=== PATIENT | male | born 1935 | race Caucasian/White ===

== ENCOUNTER 2020-08-14 12:37 | Outpatient (CLI) | payer OTHER, MEDICARE | END 2020-08-14 19:25 | disposition home or self-care (01) | LOC: SUS 12:37 | PROVIDERS: ATTEND Internal Medicine | DX: N28.1 Cyst of kidney, acquired (principal) | CPT/HCPCS: 76770 ==

== ENCOUNTER 2020-09-09 14:59 | Emergency (ER) | payer OTHER, MEDICARE ==
[~2020-09-09] VITALS: Ht 175.3 cm; Wt 103.0 kg
[2020-09-09 15:20] VITALS: BP_SYST 170
[2020-09-09 16:00] VITALS: BP_SYST 170
== END 2020-09-09 16:00 | disposition home or self-care (01) ==
LOC: SED 14:59
DX: S80.212A Abrasion, left knee, initial encounter (principal); W57.XXXA Bitten or stung by nonvenomous insect and other nonvenomous arthropods, initial encounter; Y93.89 Activity, other specified; Y92.89 Other specified places as the place of occurrence of the external cause; Y99.8 Other external cause status
CPT/HCPCS: 99281

== ENCOUNTER 2021-01-18 08:34 | Outpatient (CLI) | payer OTHER, MEDICARE | END 2021-01-18 21:10 | disposition home or self-care (01) | LOC: SUS 08:34 | PROVIDERS: ATTEND Internal Medicine | DX: K80.20 Calculus of gallbladder without cholecystitis without obstruction (principal); R16.0 Hepatomegaly, not elsewhere classified; I82.403 Acute embolism and thrombosis of unspecified deep veins of lower extremity, bilateral; R31.9 Hematuria, unspecified | CPT/HCPCS: 76700-TC; 93970 ==

== ENCOUNTER 2021-06-30 15:39 | Outpatient (CLI) | payer OTHER, MEDICARE | END 2021-06-30 20:48 | disposition home or self-care (01) | LOC: SUS 15:39 | PROVIDERS: ATTEND Internal Medicine | DX: N32.89 Other specified disorders of bladder (principal); N28.89 Other specified disorders of kidney and ureter; R31.9 Hematuria, unspecified | CPT/HCPCS: 76770 ==

== ENCOUNTER 2021-08-09 16:23 | Emergency (ER) | payer OTHER, MEDICARE ==
[~2021-08-09] VITALS: Ht 175.3 cm; Wt 101.6 kg
--- NOTE | 2021-08-09 16:30 | NUR ---
Patient to ER bed 4 to gown for evaluation. Side rails up. Report given to Mehreen TALAVERA.
[2021-08-09 16:32] VITALS: BP_SYST 155
--- NOTE | 2021-08-09 16:48 | NUR ---
PT SENT IN BY REQUEST OF DR PRITCHETT FROM HOME C/O RLE REDNESS AND SWELLING X [address] PRITCHETT REQUESTING TO R/O DVT. PT IS AMBULATORY, AAOX4, V/S STABLE
--- NOTE | 2021-08-09 16:50 | NUR ---
ER DR. PERSAUD AT THE BEDSIDE EXAMINING PT
[2021-08-09] MEDS ORDERED: cephALEXin 500 MG CAPSULE PO ONE (17:00)
--- NOTE | 2021-08-09 17:09 | NUR ---
ULTRASOUND AT THE BEDSIDE
[2021-08-09] MEDS ORDERED: CEPH-548 PO (17:46)
[2021-08-09 18:01] VITALS: BP_SYST 155
--- NOTE | 2021-08-09 18:02 | NUR ---
Patient given written and verbal discharge instructions and verbalizes understanding. ER MD discussed with patient the results and treatment provided. Patient in stable condition. ID arm band removed. Rx of CEPHALEXIN given. Patient educated on pain management and to follow up with PMD. Pain Scale 0/10. Opportunity for questions provided and answered. Medication side effect fact sheet provided. DR. PRITCHETT CALLED AND MADE AWARE
== END 2021-08-09 18:01 | disposition home or self-care (01) ==
LOC: SED 16:23
DX: L03.115 Cellulitis of right lower limb (principal); I50.9 Heart failure, unspecified; E11.9 Type 2 diabetes mellitus without complications; Z79.899 Other long term (current) drug therapy
CPT/HCPCS: 93971; 99284

== ENCOUNTER 2021-09-23 11:38 | Outpatient (CLI) | payer OTHER, MEDICARE ==
[~2021-09-23 11:38] MED LIST: CEPH-548 PO
== END 2021-09-23 20:40 | disposition home or self-care (01) ==
LOC: SRD 11:38
PROVIDERS: ATTEND Urology
DX: Z01.818 Encounter for other preprocedural examination (principal); N32.89 Other specified disorders of bladder; R05.9 Cough, unspecified; M47.814 Spondylosis without myelopathy or radiculopathy, thoracic region
CPT/HCPCS: 71046-TC; 93005

== ENCOUNTER 2022-03-21 09:58 | Outpatient (CLI) | payer OTHER, MEDICARE | END 2022-03-21 20:33 | disposition home or self-care (01) | LOC: SRD 09:58 | PROVIDERS: ATTEND Urology | DX: Z01.818 Encounter for other preprocedural examination (principal); C67.9 Malignant neoplasm of bladder, unspecified; I70.0 Atherosclerosis of aorta; M47.814 Spondylosis without myelopathy or radiculopathy, thoracic region | CPT/HCPCS: 71046-TC; 93005 ==

== ENCOUNTER 2022-07-12 12:44 | Outpatient (CLI) | payer OTHER, MEDICARE | END 2022-07-12 13:00 | disposition home or self-care (01) | LOC: SLB 12:44 | PROVIDERS: ATTEND Urology | DX: Z01.818 Encounter for other preprocedural examination (principal); C67.9 Malignant neoplasm of bladder, unspecified; I70.0 Atherosclerosis of aorta; M47.814 Spondylosis without myelopathy or radiculopathy, thoracic region | CPT/HCPCS: 71046-TC; 93005 ==

== ENCOUNTER 2023-04-21 11:04 | Outpatient (CLI) | payer OTHER, MEDICARE | END 2023-04-21 20:47 | disposition home or self-care (01) | LOC: SRD 11:04 | PROVIDERS: ATTEND Internal Medicine | DX: S92.402A Displaced unspecified fracture of left great toe, initial encounter for closed fracture (principal); M19.072 Primary osteoarthritis, left ankle and foot; X58.XXXA Exposure to other specified factors, initial encounter; Y93.89 Activity, other specified; Y92.89 Other specified places as the place of occurrence of the external cause; Y99.8 Other external cause status ==

== ENCOUNTER 2023-05-22 15:22 | Emergency (ER) | payer OTHER, MEDICARE ==
[~2023-05-22] VITALS: Ht 175.3 cm; Wt 93.4 kg
[2023-05-22 15:35] VITALS: BP_SYST 102; PULSE 81; RESP 13; TEMP 97.7; O2SAT 95
[2023-05-22 16:25] LABS: BASOPHILS # (AUTO) 0.1 K/uL (0.0-0.2); BASOPHILS % (AUTO) 0.6 % (0.0-2.0); EOSINOPHILS # (AUTO) 0.4 K/uL (0.0-0.4); EOSINOPHILS % (AUTO) 4.9 % (0.0-4.0); HEMATOCRIT 38.5 % (36-54); HEMOGLOBIN 12.4 g/dL (14.0-18.0); LYMPHOCYTES # (AUTO) 1.9 K/uL (1.0-5.5); LYMPHOCYTES % (AUTO) 20.7 % (20.5-51.5); MEAN CORPUSCULAR HEMOGLOBIN 29 pg (27-31); MEAN CORPUSCULAR HGB CONC 32 % (32-36); MEAN CORPUSCULAR VOLUME 90 fL (79.0-98.0); MONOCYTES % (AUTO) 10.6 % (1.7-9.3); NEUTROPHILS # (AUTO) 5.7 K/uL (1.8-7.7); NEUTROPHILS % (AUTO) 63.2 % (40.0-70.0); PLATELET COUNT (AUTO) 351 K/uL (130-430); RED BLOOD CELL COUNT(AUTO) 4.28 MIL/uL (4.2-6.2); RED CELL DISTRIBUTION WIDTH 14.8 % (9.0-15.0)
[2023-05-22 17:02] LABS: ANION GAP 9 (5-15); CALCIUM 8.2 mg/dL (8.4-11.0); CARBON DIOXIDE 25 mmol/L (23-29); CHLORIDE 98 mmol/L (98-107); CREATININE 2.25 mg/dL (0.55-1.30); GLUCOSE 222 mg/dL (74-106); POTASSIUM 4.1 mmol/L (3.5-5.1); SODIUM SERUM 132 mmol/L (136-145); UREA NITROGEN, BLOOD 35 mg/dL (8-21)
[2023-05-22 17:06] LABS: ALANINE AMINOTRANSFERASE 17 U/L (12-78); ALBUMIN 2.9 g/dL (3.4-4.8); ASPARTATE AMINOTRANSFERASE 18 U/L (10-37); TOTAL BILIRUBIN 0.5 mg/dL (0.0-1.0); TOTAL PROTEIN, SERUM 7.3 g/dL (6.4-8.3)
[2023-05-22] MEDS ORDERED: DOXY100C PO (17:31)
[2023-05-22 19:16] VITALS: BP_SYST 115; PULSE 80; RESP 16; TEMP 98.1; O2SAT 95
== END 2023-05-22 19:16 | disposition home or self-care (01) ==
LOC: SED 15:22
DX: L03.115 Cellulitis of right lower limb (principal); E11.9 Type 2 diabetes mellitus without complications; Z88.2 Allergy status to sulfonamides; Z79.899 Other long term (current) drug therapy
CPT/HCPCS: 36415; 80053; 85025; 93005; 93971; 99284

== ENCOUNTER 2023-10-21 15:57 | Emergency (ER) | payer OTHER, MEDICARE ==
[~2023-10-21] VITALS: Ht 175.3 cm; Wt 93.0 kg
[~2023-10-21 15:57] MED LIST changes: +DOXY100C PO
[2023-10-21 16:10] VITALS: BP_SYST 105; PULSE 85; RESP 22; TEMP 98.3; O2SAT 94
[2023-10-21] MEDS ORDERED: KETOROLAC TROMETHAMINE 30 MG VIAL IM ONE (17:45)
[2023-10-21] MEDS ORDERED: DICL50TA9 PO (19:15)
[2023-10-21] MEDS ORDERED: DICL20GE TP (19:15)
[2023-10-21 19:57] VITALS: BP_SYST 117; PULSE 73; RESP 17; TEMP 98; O2SAT 96
== END 2023-10-21 19:57 | disposition home or self-care (01) ==
LOC: SED 15:57
DX: M54.31 Sciatica, right side (principal); M54.50 Low back pain, unspecified; M25.551 Pain in right hip; E11.9 Type 2 diabetes mellitus without complications; Z88.2 Allergy status to sulfonamides; Z79.899 Other long term (current) drug therapy
CPT/HCPCS: 99284; 72100; 73502; 96372; 72170; J1885